=== PATIENT | male | born 1985 | race Caucasian/White ===

== ENCOUNTER 2019-11-02 22:25 | Emergency (ER) | payer OTHER ==
[~2019-11-02] VITALS: Ht 185.5 cm; Wt 127.8 kg
--- NOTE | 2019-11-02 22:44 | ED Abdominal Pain ---
General Chief Complaint: Abdominal/GI Problems Stated Complaint: BACK/SIDE PAIN,BLOOD IN VOMIT History of Present Illness Date Seen by Provider: Nov 02, 2019 Time Seen by Provider: 22:30 Initial Comments Patient is here with left flank pain started when he returned from [place] a few hours ago he probably had prominent pain at that time which eventually went down into his groin mother does have a history of kidney stones he has not had any splenosis gallbladder and appendix no medications no medication allergies no fever no chills did throw up to drink a little blood streaking has always had diarrhea but no blood in his diarrhea Timing/Duration: 1-3 Hours Severity/Quality: Moderate Location: Flank (left) Radiation: Groin Activities at Onset: None Modifying Factors: Improves With Coughing, Improves With Movement Associated Symptoms: Back Pain; No Diaphoresis, No Fatigue; Nausea/Vomiting; No Weakness Allergies and Home Medications Allergies Coded Allergies: No Known Drug Allergies (Unverified , 05/11/10) Patient Home Medication List Home Medication List Reviewed: Yes Review of Systems Review of Systems Constitutional: No chills, No fever EENTM: No Ear Pain, No Throat Pain Respiratory: Denies Cough, Denies Shortness of Air Cardiovascular: Denies Chest Pain, Denies Palpitations Gastrointestinal: Abdominal Pain, Diarrhea, Nausea, Vomiting Genitourinary: Denies Burning, Denies Hematuria Musculoskeletal: No joint pain, No muscle pain Skin: No lesions, No rash Psychiatric/Neurological: Denies Headache, Denies Numbness, Denies Weakness Past Tpodqfh-Ktmqbh-Efkjhm Hx Past Med/Social Hx: Reviewed Nursing Past Med/Soc Hx Patient Social History Alcohol Use: Rarely Uses Recreational Drug Use: No Smoking Status: Never a Smoker 2nd Hand Smoke Exposure: No Recent Foreign Travel: No Recent Hopitalizations: No Physical Abuse: No Sexual Abuse: No Mistreated: No Fear: No Seasonal Allergies Seasonal Allergies: No Past Medical History Surgeries: No Respiratory: No Cardiac: No Neurological: No Genitourinary: No Gastrointestinal: No Musculoskeletal: Yes Chronic Back Pain Endocrine: No HEENT: No Cancer: No Psychosocial: No Integumentary: No Blood Disorders: No Physical Exam Vital Signs Vital Signs - First Documented 11/02/19 22:34 Temp 36.2 Pulse 94 Resp 18 B/P (MAP) 134/92 (106) Pulse Ox 98 O2 Delivery Room Air Capillary Refill : Height/Weight/BMI Height: '" Weight: lbs. oz. kg; BMI Method:Stated General Appearance: WD/WN, no apparent distress HEENT: PERRL/EOMI, TMs normal, pharynx normal Neck: full range of motion, normal inspection Respiratory: lungs clear, no respiratory distress Cardiovascular: regular rate, rhythm, no murmur Gastrointestinal: normal bowel sounds, non tender, soft Extremities: non-tender, normal inspection Back: CVA tenderness (L) Neurologic/Psychiatric: no motor/sensory deficits, oriented x 3 Skin: normal color, warm/dry Progress/Results/Core Measures Results/Orders Lab Results Laboratory Tests Test 11/02/19 22:40 11/02/19 22:45 Range/Units Urine Color YELLOW Urine Clarity CLEAR Urine pH 5.5 5-9 Urine Specific [place] >1.030 1.016-1.022 Urine Protein TRACE H NEGATIVE Urine Glucose (UA) NEGATIVE NEGATIVE Urine Ketones NEGATIVE NEGATIVE Urine Nitrite NEGATIVE NEGATIVE Urine Bilirubin NEGATIVE NEGATIVE Urine Urobilinogen 0.2 < = 1.0 MG/DL Urine Leukocyte Esterase NEGATIVE NEGATIVE Urine RBC (Auto) 3+ H NEGATIVE Urine RBC >100 H /HPF Urine WBC NONE /HPF Urine Crystals NONE /LPF Urine Bacteria FEW H /HPF Urine Casts NONE /LPF Urine Mucus MODERATE H /LPF Urine Culture Indicated NO White Blood Count 10.9 4.3-11.0 10^3/uL Red Blood Count 5.29 4.35-5.85 10^6/uL Hemoglobin 15.8 13.3-17.7 G/DL Hematocrit 46 40-54 % Mean Corpuscular Volume 86 80-99 FL Mean Corpuscular Hemoglobin 30 25-34 PG Mean Corpuscular Hemoglobin Concent 35 32-36 G/DL Red Cell Distribution Width 13.2 10.0-14.5 % Platelet Count 321 130-400 10^3/uL Mean Platelet Volume 9.1 7.4-10.4 FL Neutrophils (%) (Auto) 60 42-75 % Lymphocytes (%) (Auto) 25 12-44 % Monocytes (%) (Auto) 11 0-12 % Eosinophils (%) (Auto) 3 0-10 % Basophils (%) (Auto) 0 0-10 % Neutrophils # (Auto) 6.6 1.8-7.8 X 10^3 Lymphocytes # (Auto) 2.7 1.0-4.0 X 10^3 Monocytes # (Auto) 1.2 H 0.0-1.0 X 10^3 Eosinophils # (Auto) 0.4 H 0.0-0.3 10^3/uL Basophils # (Auto) 0.0 0.0-0.1 10^3/uL Neutrophils % (Manual) 63 % Lymphocytes % (Manual) 23 % Monocytes % (Manual) 6 % Eosinophils % (Manual) 7 % Band Neutrophils 1 % Microcytosis MODERATE Sodium Level 139 135-145 MMOL/L Potassium Level 3.9 3.6-5.0 MMOL/L Chloride Level 101 98-107 MMOL/L Carbon Dioxide Level 24 21-32 MMOL/L Anion Gap 14 5-14 MMOL/L Blood Urea Nitrogen 13 7-18 MG/DL Creatinine 0.76 0.60-1.30 MG/DL Estimat Glomerular Filtration Rate > 60 BUN/Creatinine Ratio 17 Glucose Level 149 H 70-105 MG/DL Calcium Level 9.3 8.5-10.1 MG/DL Corrected Calcium 9.1 8.5-10.1 MG/DL Total Bilirubin 0.4 0.1-1.0 MG/DL Aspartate Amino Transf (AST/SGOT) 92 H 5-34 U/L Alanine Aminotransferase (ALT/SGPT) 130 H 0-55 U/L Alkaline Phosphatase 96 40-136 U/L Total Protein 8.2 6.4-8.2 GM/DL Albumin 4.3 3.2-4.5 GM/DL Lipase 49 8-78 U/L My Orders Orders - JOEY GUADALUPE JR, MD Cbc And Manual Diff (11/02/19 22:40) Ua Culture If Indicated (11/02/19 22:40) Comprehensive Metabolic Panel (11/02/19 22:40) Lipase (11/02/19 22:40) Ns Iv 1000 Ml (Sodium Chloride 0.9%) (11/02/19 22:45) Ct Abdomen/Pelvis Wo (11/02/19 22:40) Ns Iv 1000 Ml (Sodium Chloride 0.9%) (11/03/19 00:15) Ketorolac Injection (Toradol Injection) (11/03/19 00:15) Medications Given in ED Current Medications Medications Dose Ordered Sig/Frankie Route Start Time Stop Time Status Last Admin Dose Admin Ketorolac Tromethamine 30 mg ONCE ONCE IVP 11/03/19 00:15 11/03/19 00:16 DC 11/03/19 00:17 30 MG Vital Signs/I&O 11/02/19 22:34 Temp 36.2 Pulse 94 Resp 18 B/P (MAP) 134/92 (106) Pulse Ox 98 O2 Delivery Room Air 11/03/19 00:00 Intake Total 1000 ml Balance 1000 ml Progress Progress Note : Time: 01:08 Progress Note Patient's pain resolved at this time we'll send home follow up with his doctor next week to make sure stones cleared will straining capture anything that this past and taken to his PCP. Departure Impression Primary Impression: Kidney stone Disposition: 01 HOME, SELF-CARE Condition: Stable Departure-Patient Inst. Referrals: NO,LOCAL PHYSICIAN (PCP/Family) Primary Care Physician Patient Instructions: Kidney Stones (DC) JOEY GUADALUPE JR, MD Nov 02, 2019 22:44
[2019-11-02] MEDS ORDERED: NS IV 1000 ML 1,000 ML IV SCH (22:45)
[2019-11-02 22:54] LABS: HEMATOCRIT 46 % (40-54); HEMOGLOBIN 15.8 G/DL (13.3-17.7); MEAN CORPUSCULAR HEMOGLOBIN 30 PG (25-34); MEAN CORPUSCULAR VOLUME 86 FL (80-99); WHITE BLOOD COUNT 10.9 10^3/uL (4.3-11.0)
[2019-11-02 22:55] LABS: BASOPHILS % (AUTO) 0 % (0-10); EOSINOPHILS # (AUTO) 0.4 10^3/uL (0.0-0.3); EOSINOPHILS % (AUTO) 3 % (0-10); LYMPHOCYTES # (AUTO) 2.7 X 10^3 (1.0-4.0); LYMPHOCYTES % (AUTO) 25 % (12-44); MEAN CORPUSCULAR HGB CONC 35 G/DL (32-36); MEAN PLATELET VOLUME 9.1 FL (7.4-10.4); MONOCYTES # (AUTO) 1.2 X 10^3 (0.0-1.0); MONOCYTES % (AUTO) 11 % (0-12); NEUTROPHILS # (AUTO) 6.6 X 10^3 (1.8-7.8); NEUTROPHILS % (AUTO) 60 % (42-75); PLATELET COUNT 321 10^3/uL (130-400); RED CELL DISTRIBUTION WIDTH 13.2 % (10.0-14.5)
[2019-11-02 23:01] LABS: CLARITY,URINE CLEAR; COLOR,URINE YELLOW; GLUCOSE, URINE (UA) NEGATIVE (NEGATIVE); KETONES,URINE NEGATIVE (NEGATIVE); NITRITE,URINE NEGATIVE (NEGATIVE); PH,URINE 5.5 (5-9); PROTEIN,URINE TRACE (NEGATIVE)
[2019-11-02 23:02] LABS: BACTERIA,URINE FEW /HPF; BILIRUBIN,URINE NEGATIVE (NEGATIVE); LEUKOCYTE ESTERASE ,URINE NEGATIVE (NEGATIVE); RBC,URINE >100 /HPF
[2019-11-02 23:12] LABS: ALANINE AMINOTRANSFERASE 130 U/L (0-55); ALBUMIN 4.3 GM/DL (3.2-4.5); ALKALINE PHOSPHATASE 96 U/L (40-136); BILIRUBIN,TOTAL 0.4 MG/DL (0.1-1.0); BUN/CREATININE RATIO 17; CALCIUM 9.3 MG/DL (8.5-10.1); CARBON DIOXIDE 24 MMOL/L (21-32); CHLORIDE 101 MMOL/L (98-107); CREATININE SERUM 0.76 MG/DL (0.60-1.30); GFR ESTIMATED > 60; GLUCOSE 149 MG/DL (70-105); LIPASE 49 U/L (8-78); POTASSIUM 3.9 MMOL/L (3.6-5.0); SODIUM 139 MMOL/L (135-145); TOTAL PROTEIN 8.2 GM/DL (6.4-8.2)
[2019-11-02 23:21] LABS: BAND NEUTROPHILS 1 %; EOSINOPHILS % (MANUAL) 7 %; LYMPHOCYTES % (MANUAL) 23 %; MICROCYTOSIS MODERATE; MONOCYTES % (MANUAL) 6 %; NEUTROPHILS % (MANUAL) 63 %
[2019-11-03] MEDS ORDERED: NS IV 1000 ML 1,000 ML IV SCH (00:15)
[2019-11-03] MEDS ORDERED: KETOROLAC 30 MG/ML VIAL IVP ONE (00:15)
[2019-11-03 01:13] VITALS: BP 118/71
--- NOTE | 2019-11-03 07:24 | Diagnostic Imaging Report ---
PROCEDURE: CT abdomen and pelvis without contrast. TECHNIQUE: Multiple contiguous axial images were obtained through the abdomen and pelvis without the use of intravenous contrast. Auto Exposure Controls were utilized during the CT exam to meet ALARA standards for radiation dose reduction. Indication: Left flank pain with nausea and vomiting. Comparison: None. Discussion: The lung bases are unremarkable. Normal heart size. No pleural or pericardial fluid. Fatty infiltration of the liver is noted. The liver is mildly enlarged measuring 20 cm. The gallbladder is mostly contracted. No stone. The pancreas, spleen, stomach, and adrenal glands are unremarkable. A 2 mm nonobstructing left renal calculus. There is a 4 mm stone within the proximal left ureter with mild left hydronephrosis. The large and small bowel loops appear within normal limits. No evidence for appendicitis. The urinary bladder is decompressed. Prostate is normal in size. No ascites or pathologically enlarged lymph nodes identified. The aorta is normal in caliber. No acute osseous abnormality identified. Impression: 1. A 4 mm stone within the proximal left ureter with mild left hydronephrosis. Additional 2 mm nonobstructing left renal calculus. 2. Fatty hepatomegaly. 3. Agree with preliminary report. Dictated by: Dictated on workstation # [id number]
== END 2019-11-03 01:13 | disposition home or self-care (01) ==
LOC: EDUNIT# 22:25 → ER FS 22:27
DX: N13.2 Hydronephrosis with renal and ureteral calculous obstruction (principal)
CPT/HCPCS: 36415; 74176; 80053; 81000; 83690; 85007; 85027; 96361; 96374

== ENCOUNTER 2019-11-10 02:49 | Emergency (ER) | payer OTHER ==
[~2019-11-10] VITALS: Ht 187 cm; Wt 127.0 kg
--- NOTE | 2019-11-10 03:12 | ED Back Pain ---
General Chief Complaint: Back Problems Stated Complaint: KIDNEY STONES Nursing Triage Note: PT COMPLAINING OF LEFT FLANK PAIN. PT DIAGNOSED WITH A KIDNEY STONE A WEEK AGO AND HASN'T BEEN ABLE TO PASS IT YET Nursing Sepsis Screen: No Definite Risk Source of Information: Patient, RN Notes Reviewed History of Present Illness Date Seen by Provider: Nov 10, 2019 Time Seen by Provider: 03:11 Initial Comments Patient has a previously diagnosed kidney stone on the left 4 mm on CAT scan has continued pain with vomiting and feels like he needs to urinate same symptoms as he had previously saidfever otherwise not been unwell never saw the urologist and is unaware of passing the stone spontaneously Location: Paraspinous Muscles Timing/Duration: 12-24 Hours Severity: Moderate Pain/Injury Location: Back Radiation: Other (genitals) Associated Symptoms: other (vomiting) Allergies and Home Medications Allergies Coded Allergies: No Known Drug Allergies (Unverified , 05/11/10) Home Medications Hydrocodone/Acetaminophen 1 Each Tablet, 1 EACH PO Q6H PRN for PAIN-MODERATE Prescribed by: JULES GUTIERREZ on 11/10/19411 Ibuprofen 800 Mg Tablet, 800 MG PO Q8H PRN for PAIN Prescribed by: JULES GUTIERREZ on 11/10/19411 Patient Home Medication List Home Medication List Reviewed: Yes Review of Systems Constitutional: no symptoms reported EENTM: no symptoms reported Respiratory: no symptoms reported Cardiovascular: no symptoms reported Gastrointestinal: LLQ, vomiting Genitourinary: see HPI Musculoskeletal: see HPI, back pain Skin: no symptoms reported Psychiatric/Neurological: No Symptoms Reported Past Xxbiwly-Ssaafz-Oaeaxu Hx Patient Social History Alcohol Use: Denies Use Recreational Drug Use: No 2nd Hand Smoke Exposure: No Recent Foreign Travel: No Contact w/Someone Who Travel: No Recent Infectious Disease Expo: No Recent Hopitalizations: No Physical Abuse: No Sexual Abuse: No Seasonal Allergies Seasonal Allergies: No Past Medical History Surgeries: No Respiratory: No Cardiac: No Neurological: No Genitourinary: No Gastrointestinal: No Musculoskeletal: Yes Chronic Back Pain Endocrine: No HEENT: No Cancer: No Psychosocial: No Integumentary: No Blood Disorders: No Physical Exam Vital Signs Vital Signs - First Documented 11/10/19 02:55 Temp 36.7 Pulse 90 Resp 16 B/P (MAP) 138/85 (102) Pulse Ox 95 O2 Delivery Room Air Capillary Refill : Less Than 3 Seconds Height, Weight, BMI Height: '" Weight: lbs. oz. kg; 36.00 BMI Method:Stated General Appearance: WD/WN, Mild Distress HEENT: PERRL/EOMI, Normal ENT Inspection Neck: Full Range of Motion, Non Tender Cardiovascular: Regular Rate, Rhythm, No Edema Respiratory: Chest Non Tender, Lungs Clear, Normal Breath Sounds, No Accessory Muscle Use Gastrointestinal: Normal Bowel Sounds, No Organomegaly, No Pulsatile Mass, Non Tender Back: Normal Inspection, No CVA Tenderness, No Vertebral Tenderness Extremity: Normal Capillary Refill, Normal Inspection, Normal Range of Motion, Non Tender Neurologic/Psychiatric: Alert, Oriented x3, No Motor/Sensory Deficits Skin: Normal Color, Warm/Dry, Cool Progress/Results/Core Measures Results/Orders Lab Results Laboratory Tests Test 11/10/19 03:15 11/10/19 03:25 Range/Units White Blood Count 13.1 H 4.3-11.0 10^3/uL Red Blood Count 5.26 4.35-5.85 10^6/uL Hemoglobin 15.4 13.3-17.7 G/DL Hematocrit 46 40-54 % Mean Corpuscular Volume 87 80-99 FL Mean Corpuscular Hemoglobin 29 25-34 PG Mean Corpuscular Hemoglobin Concent 34 32-36 G/DL Red Cell Distribution Width 13.2 10.0-14.5 % Platelet Count 313 130-400 10^3/uL Mean Platelet Volume 8.9 7.4-10.4 FL Neutrophils (%) (Auto) 57 42-75 % Lymphocytes (%) (Auto) 26 12-44 % Monocytes (%) (Auto) 12 0-12 % Eosinophils (%) (Auto) 4 0-10 % Basophils (%) (Auto) 0 0-10 % Neutrophils # (Auto) 7.5 1.8-7.8 X 10^3 Lymphocytes # (Auto) 3.4 1.0-4.0 X 10^3 Monocytes # (Auto) 1.6 H 0.0-1.0 X 10^3 Eosinophils # (Auto) 0.5 H 0.0-0.3 10^3/uL Basophils # (Auto) 0.0 0.0-0.1 10^3/uL Neutrophils % (Manual) 62 % Lymphocytes % (Manual) 14 % Monocytes % (Manual) 5 % Eosinophils % (Manual) 2 % Band Neutrophils 3 % Reactive Lymphocytes 14 % Microcytosis MODERATE Sodium Level 139 135-145 MMOL/L Potassium Level 3.7 3.6-5.0 MMOL/L Chloride Level 101 98-107 MMOL/L Carbon Dioxide Level 24 21-32 MMOL/L Anion Gap 14 5-14 MMOL/L Blood Urea Nitrogen 17 7-18 MG/DL Creatinine 1.06 0.60-1.30 MG/DL Estimat Glomerular Filtration Rate > 60 BUN/Creatinine Ratio 16 Glucose Level 122 H 70-105 MG/DL Calcium Level 9.4 8.5-10.1 MG/DL Urine Color YELLOW Urine Clarity CLEAR Urine pH 6.0 5-9 Urine Specific [place] 1.020 1.016-1.022 Urine Protein NEGATIVE NEGATIVE Urine Glucose (UA) NEGATIVE NEGATIVE Urine Ketones NEGATIVE NEGATIVE Urine Nitrite NEGATIVE NEGATIVE Urine Bilirubin NEGATIVE NEGATIVE Urine Urobilinogen 0.2 < = 1.0 MG/DL Urine Leukocyte Esterase NEGATIVE NEGATIVE Urine RBC (Auto) 1+ H NEGATIVE Urine RBC 10-25 H /HPF Urine WBC NONE /HPF Urine Squamous Epithelial Cells NONE /HPF Urine Crystals NONE /LPF Urine Bacteria TRACE /HPF Urine Casts PRESENT /LPF Urine Hyaline Casts 10-25 H /LPF Urine Mucus LARGE H /LPF Urine Culture Indicated NO My Orders Orders - JULES GUTIERREZ DO Ed Iv/Invasive Line Start (11/10/19 03:17) Ed Iv/Invasive Line Start (11/10/19 03:18) Ct Abd/Pelvis Wo(Kidney Stone) (11/10/19 03:18) Ua Culture If Indicated (11/10/19 03:18) Ketorolac Injection (Toradol Injection) (11/10/19 03:30) Basic Metabolic Panel (11/10/19 03:18) Cbc And Manual Diff (11/10/19 03:18) Ns Iv 1000 Ml (Sodium Chloride 0.9%) (11/10/19 03:30) Medications Given in ED Current Medications Medications Dose Ordered Sig/Frankie Route Start Time Stop Time Status Last Admin Dose Admin Ketorolac Tromethamine 30 mg ONCE ONCE IVP 11/10/19 03:30 11/10/19 03:31 DC 11/10/19 03:30 30 MG Vital Signs/I&O 11/10/19 11/10/19 02:55 04:21 Temp 36.7 Pulse 90 85 Resp 16 16 B/P (MAP) 138/85 (102) 135/73 Pulse Ox 95 96 O2 Delivery Room Air Room Air Blood Pressure Mean: 102 Progress Progress Note : Progress Note Patient with flank pain consistent with previous ureteral calculus is history of 4 mm stone with high-grade obstruction on previous CT. Now he has increased pain dysuria no fever vomiting similar symptoms. Plan will be reimaging due to several days passing without stone to ensure this is not an one of the anatomic narrowed areas IV fluids and analgesia and probably urology follow-up Departure Impression Primary Impression: Ureteral stone with hydronephrosis Disposition: HOME, SELF-CARE Condition: Improved Departure-Patient Inst. Referrals: SELFWALT MD (PCP/Family) Primary Care Physician BRITTANIE POWELL MD Scripts Ibuprofen (Ibuprofen) 800 Mg Tablet 800 MG PO Q8H PRN for PAIN for 7 Days, #30 TAB 0 Refills Prov: JULES GUTIERREZ DO 11/10/19 Hydrocodone/Acetaminophen (Hydrocodon-Acetaminophn 10-325) 1 Each Tablet 1 EACH PO Q6H PRN for PAIN-MODERATE MDD 5 for 3 Days, #14 TAB 0 Refills Prov: JULES GUTIERREZ DO 11/10/19 JULES GUTIERREZ DO Nov 10, 2019 03:12
[2019-11-10 03:26] LABS: BASOPHILS % (AUTO) 0 % (0-10); EOSINOPHILS # (AUTO) 0.5 10^3/uL (0.0-0.3); EOSINOPHILS % (AUTO) 4 % (0-10); HEMATOCRIT 46 % (40-54); HEMOGLOBIN 15.4 G/DL (13.3-17.7); LYMPHOCYTES # (AUTO) 3.4 X 10^3 (1.0-4.0); LYMPHOCYTES % (AUTO) 26 % (12-44); MEAN CORPUSCULAR HEMOGLOBIN 29 PG (25-34); MEAN CORPUSCULAR HGB CONC 34 G/DL (32-36); MEAN CORPUSCULAR VOLUME 87 FL (80-99); MEAN PLATELET VOLUME 8.9 FL (7.4-10.4); MONOCYTES # (AUTO) 1.6 X 10^3 (0.0-1.0); MONOCYTES % (AUTO) 12 % (0-12); NEUTROPHILS # (AUTO) 7.5 X 10^3 (1.8-7.8); NEUTROPHILS % (AUTO) 57 % (42-75); PLATELET COUNT 313 10^3/uL (130-400); RED CELL DISTRIBUTION WIDTH 13.2 % (10.0-14.5); WHITE BLOOD COUNT 13.1 10^3/uL (4.3-11.0)
[2019-11-10] MEDS ORDERED: KETOROLAC 30 MG/ML VIAL IVP ONE (03:30)
[2019-11-10] MEDS ORDERED: NS IV 1000 ML 1,000 ML IV SCH (03:30)
[2019-11-10 03:38] LABS: BACTERIA,URINE TRACE /HPF; BILIRUBIN,URINE NEGATIVE (NEGATIVE); CLARITY,URINE CLEAR; COLOR,URINE YELLOW; GLUCOSE, URINE (UA) NEGATIVE (NEGATIVE); KETONES,URINE NEGATIVE (NEGATIVE); LEUKOCYTE ESTERASE ,URINE NEGATIVE (NEGATIVE); NITRITE,URINE NEGATIVE (NEGATIVE); PROTEIN,URINE NEGATIVE (NEGATIVE)
[2019-11-10 03:44] LABS: BAND NEUTROPHILS 3 %; EOSINOPHILS % (MANUAL) 2 %; LYMPHOCYTES % (MANUAL) 14 %; MICROCYTOSIS MODERATE; MONOCYTES % (MANUAL) 5 %; NEUTROPHILS % (MANUAL) 62 %; REACTIVE LYMPHOCYTES 14 %
[2019-11-10 03:51] LABS: BUN/CREATININE RATIO 16; CALCIUM 9.4 MG/DL (8.5-10.1); CARBON DIOXIDE 24 MMOL/L (21-32); CHLORIDE 101 MMOL/L (98-107); CREATININE SERUM 1.06 MG/DL (0.60-1.30); GFR ESTIMATED > 60; GLUCOSE 122 MG/DL (70-105); POTASSIUM 3.7 MMOL/L (3.6-5.0); SODIUM 139 MMOL/L (135-145)
[2019-11-10] MEDS ORDERED: IBUP-1780 PO (04:12)
[2019-11-10] MEDS ORDERED: HYDR-3820 PO (04:12)
[2019-11-10 04:21] VITALS: BP 135/73
--- NOTE | 2019-11-10 06:31 | Diagnostic Imaging Report ---
CT ABD/PELVIS WO(KIDNEY STONE) TECHNIQUE: Unenhanced CT imaging of the abdomen and pelvis was performed. 2-D reformats are created and submitted for interpretation. Automatic exposure controls were utilized to optimize patient dose. INDICATION: Left flank pain COMPARISON: 11/02/2019 FINDINGS: Evaluation of the abdominal viscera is mildly limited without contrast. Lower chest: The lung bases are clear. No pericardial or pleural effusion. Peritoneum: No free intraperitoneal air or fluid. Liver and biliary system: Diffuse hypoattenuation of the liver is indicative of hepatic steatosis. No focal hepatic lesion. The gallbladder is normal. No biliary duct dilation. Spleen and Pancreas: Spleen is normal. Unenhanced pancreas is grossly normal. Adrenals: Normal. tract: The 4 mm left renal stone has migrated to the level of the UVJ and still results in mild left hydronephrosis and hydroureter. Additional 2 mm nonobstructing stone in the upper pole left kidney stable. No right renal or ureteral calculi. GI tract: Stomach is partially filled with fluid and food debris and there is no wall thickening. No bowel obstruction. No pericolonic inflammatory changes. Normal appendix. Vasculature and Lymph nodes: Normal caliber aorta. No abdominal or pelvic lymphadenopathy. Musculoskeletal: No concerning osseous lesion. L5-S1 central disc protrusion is unchanged results in mild spinal stenosis. IMPRESSION: 1. The 4 mm left renal stone has now propagated to the level of the UVJ and still results in mild left hydronephrosis. 2. Findings are in agreement with the preliminary report. Dictated by: Dictated on workstation # [id number]
== END 2019-11-10 04:21 | disposition home or self-care (01) ==
LOC: EDUNIT# 02:49 → ER FS 02:51
DX: N13.2 Hydronephrosis with renal and ureteral calculous obstruction (principal); G89.29 Other chronic pain
CPT/HCPCS: 36415; 74176; 80048; 81000; 85007; 85027; 96361; 96374

== ENCOUNTER 2019-11-16 15:23 | Emergency (ER) | payer OTHER ==
[~2019-11-16] VITALS: Ht 185.4 cm; Wt 130.3 kg
[~2019-11-16 15:23] MED LIST: HYDR-3820 PO; IBUP-1780 PO
[2019-11-16] MEDS ORDERED: ONDANSETRON 4 MG (ZOFRAN) ORAL DISSOLVE TAB PO STA (16:18)
[2019-11-16] MEDS ORDERED: morphine INJ 10 MG/ML 1ML (SYR OR VIAL) IM STA (16:18)
[2019-11-16 16:55] LABS: CLARITY,URINE CLEAR; COLOR,URINE YELLOW; GLUCOSE, URINE (UA) NEGATIVE (NEGATIVE); PH,URINE 5.5 (5-9); PROTEIN,URINE NEGATIVE (NEGATIVE)
[2019-11-16 16:56] LABS: BACTERIA,URINE NEGATIVE /HPF; BILIRUBIN,URINE NEGATIVE (NEGATIVE); KETONES,URINE NEGATIVE (NEGATIVE); LEUKOCYTE ESTERASE ,URINE NEGATIVE (NEGATIVE); NITRITE,URINE NEGATIVE (NEGATIVE); SQUAMOUS EPITHELIAL CELL,UR RARE /HPF; WBC,URINE RARE /HPF
--- NOTE | 2019-11-16 17:02 | ED GU-Female ---
General Chief Complaint: - Urinary Stated Complaint: UNABLE TO PASS KIDNEY STONE Nursing Triage Note: Patient presents to the ED with c/o burning and urgency with urination. States that he has been seen in the ED several times and is unable to pass the kidens stone. Nursing Sepsis Screen: No Definite Risk History of Present Illness Date Seen by Provider: Nov 16, 2019 Time Seen by Provider: 15:35 Initial Comments The patient is a 34-year-old otherwise healthy male who presents for reevaluation of continued left flank discomfort with radiation towards the groin. He has a diagnosis of left-sided ureteral stone which has been present for almost 3 weeks and has been imaged twice. At last imaging on the it had moved to the ureterovesicular junction on the left and patient states that pain has been completely unchanged since that time. He has been taking hydrocodone at home without relief of symptoms. He states he does not know what to do. He reports hematuria. He denies associated fevers, hematemesis, hematochezia, melena, cough, shortness of breath or chest pain, focal abdominal pain of any kind, pain to testicles or scrotum or penis or Pyridium, changes in bowel habits. Patient is supposed to see urology in the office next week but does not think he can wait that long. Allergies and Home Medications Allergies Coded Allergies: No Known Drug Allergies (Unverified , 05/11/10) Home Medications Hydrocodone/Acetaminophen 1 Each Tablet, 1 EACH PO Q6H PRN for PAIN-MODERATE Prescribed by: JULES GUTIERREZ on 11/10/192 Ibuprofen 800 Mg Tablet, 800 MG PO Q8H PRN for PAIN Prescribed by: JULES GUTIERREZ on 11/10/19411 Patient Home Medication List Home Medication List Reviewed: Yes Review of Systems Review of Systems Constitutional: see HPI All Other Systemes Reviewed Negative Unless Noted: Yes (Negative excepted noted.) Past Gvmphcq-Dkeyze-Telzgx Hx Past Med/Social Hx: Reviewed Nursing Past Med/Soc Hx Patient Social History Alcohol Use: Denies Use Recreational Drug Use: No 2nd Hand Smoke Exposure: No Recent Foreign Travel: No Contact w/Someone Who Travel: No Recent Infectious Disease Expo: No Recent Hopitalizations: No Physical Abuse: No Sexual Abuse: No Mistreated: No Fear: No Seasonal Allergies Seasonal Allergies: No Past Medical History Surgeries: No Respiratory: No Cardiac: No Neurological: No Genitourinary: No Gastrointestinal: No Musculoskeletal: Yes Chronic Back Pain Endocrine: No HEENT: No Cancer: No Psychosocial: No Integumentary: No Blood Disorders: No Family Medical History Reviewed Nursing Family Hx Physical Exam Vital Signs Vital Signs - First Documented 11/16/19 16:18 Temp 36.7 Pulse 99 Resp 20 B/P (MAP) 144/91 (108) Pulse Ox 94 O2 Delivery Room Air Capillary Refill : Less Than 3 Seconds Height, Weight, BMI Height: '" Weight: lbs. oz. kg; 37.00 BMI Method:Stated General Appearance: no apparent distress Is a younger male appearing nontoxic and in no acute distress. Head is normocephalic and atraumatic. Neck is supple and nontender. Oropharynx is moist. Lungs are clear to auscultation at all stations. There is a normal S1 and S2 without rubs or gallops and capillary refill is appropriate, less than 2 seconds globally. Abdomen is soft, nontender nondistended. Skin is warm and dry without cyanosis, clubbing or edema. Psychiatrically, the patient didn't straights appropriate mood and affect and is alert. Progress/Results/Core Measures Suspected Sepsis Recent Fever Within 48 Hours: No Infection Criteria Present: None New/Unexplained Altered Menta: No Sepsis Screen: No Definite Risk SIRS Temperature: Pulse: 99 Respiratory Rate: 20 Blood Pressure 144 /91 Mean: 108 Results/Orders Lab Results Laboratory Tests Test 11/16/19 15:50 Range/Units Urine Color YELLOW Urine Clarity CLEAR Urine pH 5.5 5-9 Urine Specific [place] 1.025 H 1.016-1.022 Urine Protein NEGATIVE NEGATIVE Urine Glucose (UA) NEGATIVE NEGATIVE Urine Ketones NEGATIVE NEGATIVE Urine Nitrite NEGATIVE NEGATIVE Urine Bilirubin NEGATIVE NEGATIVE Urine Urobilinogen 0.2 < = 1.0 MG/DL Urine Leukocyte Esterase NEGATIVE NEGATIVE Urine RBC (Auto) 1+ H NEGATIVE Urine RBC 2-5 H /HPF Urine WBC RARE /HPF Urine Squamous Epithelial Cells RARE /HPF Urine Crystals NONE /LPF Urine Bacteria NEGATIVE /HPF Urine Casts NONE /LPF Urine Mucus NONE /LPF Urine Culture Indicated NO My Orders Orders - HAILEY GRIMALDO MD Ua Culture If Indicated (11/16/19 16:18) Morphine Injection (Morphine Injection (11/16/19 16:18) Ondansetron Oral Dissolve Tab (Zofran (11/16/19 16:18) Vital Signs/I&O 11/16/19 16:18 Temp 36.7 Pulse 99 Resp 20 B/P (MAP) 144/91 (108) Pulse Ox 94 O2 Delivery Room Air Capillary Refill : Less Than 3 Seconds Blood Pressure Mean: 108 Progress Note : Time: 17:00 Progress Note Patient presents for his third reevaluation of left flank pain radiating to the groin with associated hematuria in the setting of known left sided UVJ stone, 4 mm in size. Last imaged on every . Has not been able to follow-up with urology yet. Patient is in poorly controlled distress at home. We will not repeat imaging today. We'll check urinalysis and will treat pain and nausea and will plan for admission to facilitate urology attention to address the issue appropriately. Unfortunately there is no urology coverage this weekend at [facility] so we will need to transfer. Patient is therefore graciously accepted in transfer to [facility] by Dr. Anderson. Departure Impression Primary Impression: Renal colic on left side Disposition: XFER SHT-TRM HOSP Condition: Stable Transfer Transfer Reason: Exceeds level of care Time Spoke to Accepting Phy: 17:01 Transfer Progress Notes No inpatient urology coverage at [facility]. Transferring to [facility] in consequence, as noted above. Patient wants to go by private vehicle and declines EMS transfer. He understands the risks inherent in doing so and agrees to accept them. Transfer Facility: [facility] Method of Transfer: Private Vehicle Departure-Patient Inst. Referrals: SELF,WALT WALLACE (PCP/Family) Primary Care Physician HAILEY GRIMALDO MD Nov 16, 2019 17:02
--- NOTE | 2019-11-16 18:03 | NUR ---
[facility] transfer line was notified that pt will be going by private vehicle.
[2019-11-16 18:18] VITALS: BP 148/87
== END 2019-11-16 18:09 | disposition short-term general hospital (02) ==
LOC: EDUNIT# 15:23 → ER FS 15:24
DX: N23 Unspecified renal colic (principal)
CPT/HCPCS: 81000; 96372; 99284

== ENCOUNTER 2021-08-15 15:03 | Emergency (ER) | payer OTHER ==
[~2021-08-15] VITALS: Ht 185 cm; Wt 129.0 kg
[~2021-08-15 15:03] MED LIST changes: +ACHYD1T PO; -HYDR-3820 PO
[2021-08-15 15:33] VITALS: BP 127/71
[2021-08-15] MEDS ORDERED: ONDANSETRON 4 MG (ZOFRAN) ORAL DISSOLVE TAB PO STA (15:55)
[2021-08-15] MEDS ORDERED: morphine INJ 10 MG/ML 1ML (SYR OR VIAL) IM STA (15:55)
--- NOTE | 2021-08-15 15:55 | ED Back Pain ---
General Chief Complaint: Back Problems Stated Complaint: BACK PAIN Nursing Triage Note: Patient has presented to ER with cc of lower left sided back pain with radiation down the back of his left leg. 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 He is unaware of any specific injury that caused this pain. Source of Information: Patient Exam Limitations: No Limitations History of Present Illness Date Seen by Provider: Aug 15, 2021 Time Seen by Provider: 16:00 Initial Comments Patient is a 36-year-old male with history of chronic recurrent sciatica who presents with acute onset left lower lumbar radicular back pain 10- day goes ago after lifting at work. 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 States pain radi ates above his knee. Not associated with bowel or bladder dysfunction or saddle anesthesia. Pain is moderate to severe worse with rotation lifting and movement. Pain was stopped work today when he had to stop due to pain. He is being treated by his chiropractor and taken [id number] pain medication with limited relief. He has not had an MRI in a number of years. No other acute symptoms or complaints. Location: Paraspinous Muscles Timing/Duration: 1 Week, Getting Worse Severity: Severe Pain/Injury Location: Back Radiation: Upper Legs Method of Injury: Other Modifying Factors: Improves With Other Associated Symptoms: other Allergies and Home Medications Allergies Coded Allergies: No Known Drug Allergies (Unverified , 05/11/10) Patient Home Medication List Home Medication List Reviewed: Yes Hydrocodone Bit/Acetaminophen (HYDROcodone/APAP 10/325 TABLET) 1 Each Tablet, 1 EACH PO Q6H PRN for PAIN-MODERATE Prescribed by: JULES GUTIERREZ on 11/10/192 Ibuprofen (Ibuprofen) 800 Mg Tablet, 800 MG PO Q8H PRN for PAIN Prescribed by: JULES GUTIERREZ on 11/10/19 041 Review of Systems Constitutional: other (Moderate distress secondary to discomfort) EENTM: see HPI Respiratory: see HPI Cardiovascular: see HPI Gastrointestinal: see HPI Genitourinary: see HPI Musculoskeletal: see HPI Skin: see HPI Psychiatric/Neurological: See HPI Past [id number] Hx Patient Social History Tobacco Use?: No Use of E-Cig and/or Vaping dev: No Substance use?: No Alcohol Use?: No Seasonal Allergies Seasonal Allergies: No Past Medical History Surgeries: No Respiratory: No Cardiac: No Neurological: No Genitourinary: No Gastrointestinal: No Musculoskeletal: Yes Chronic Back Pain Endocrine: No HEENT: No Cancer: No Psychosocial: No Integumentary: No Blood Disorders: No Physical Exam Vital Signs Vital Signs - First Documented 08/15/21 15:33 Temp 36.4 Pulse 80 Resp 18 B/P (MAP) 127/71 (89) Pulse Ox 97 O2 Delivery Room Air Capillary Refill : Height, Weight, BMI Height: '" Weight: lbs. oz. kg; 37.00 BMI Method:Stated General Appearance: Moderate Distress (Secondary to pain) HEENT: PERRL/EOMI, Other Neck: Other Cardiovascular: Regular Rate, Rhythm Respiratory: Lungs Clear Back: Decreased Range of Motion, Muscle Spasm, Other (Positive SLR on the left) Neurologic/Psychiatric: Alert, Oriented x3, No Motor/Sensory Deficits Progress/Results/Core Measures Results/Orders My Orders Orders - LORENA VENEGAS DO Morphine Injection (Morphine Injection (08/15/21 15:55) Orphenadrine Inj (Ed Only) (Norflex Inje (08/15/21 16:00) Ondansetron Oral Dissolve Tab (Zofran (08/15/21 15:55) Vital Signs/I&O 08/15/21 15:33 Temp 36.4 Pulse 80 Resp 18 B/P (MAP) 127/71 (89) Pulse Ox 97 O2 Delivery Room Air Blood Pressure Mean: 89 Departure Communication (Admissions) Patient with radicular back pain without neurologic compromise. Pain addressed. Recommendations are supportive care with PCP follow-up for pain management and further evaluation. Return precautions reviewed. Patient verbalizes understanding and agreement discharge instructions prior to departure. Impression Primary Impression: Lumbar radiculopathy Disposition: HOME, SELF-CARE Condition: Stable Departure-Patient Inst. Decision time for Depature: 16:26 Referrals: SELF,WALT WALLACE (PCP/Family) Primary Care Physician Patient Instructions: Radiculopathy (DC) Add. Discharge Instructions: You were evaluated in the emergency department for low back pain. Your symptoms are consistent with sciatica. Please avoid heavy lifting strenuous physical activity and follow-up with your PCP for reevaluation and further management. Take newly prescribed medications as directed. All discharge instructions reviewed with patient and/or family. Voiced understanding. Scripts Hydrocodone/Acetaminophen (Hydrocodone-Acetamin 5-325 mg) 1 Each Tablet 1 TAB PO Q4H PRN for PAIN-MODERATE (5-7), #10 TAB Prov: LORENA VENEGAS DO 08/15/21 Cyclobenzaprine HCl (Cyclobenzaprine HCl) 10 Mg Tablet 10 MG PO TID, #30 TAB Prov: LORENA VENEGAS DO 08/15/21 Methylprednisolone (Methylprednisolone Dose Pack) 4 Mg Tab.ds.pk 4 MG PO UD for 6 Days, #21 PKG PER DOSE PACK INSTRUCTIONS Prov: LORENA VENEGAS DO 08/15/21 LORENA VENEGAS DO Aug 15, 2021 15:55
[2021-08-15] MEDS ORDERED: ORPHENADRINE 60 MG/2 ML (NORFLEX) AMP (ED ONLY) IM ONE (16:00)
[2021-08-15] MEDS ORDERED: ACHD5005 PO (16:29)
[2021-08-15] MEDS ORDERED: CYCL10TA9 PO (16:29)
[2021-08-15] MEDS ORDERED: METH4TAB10 PO (16:29)
== END 2021-08-15 16:42 | disposition home or self-care (01) ==
LOC: EDUNIT# 15:03 → ER FS 15:05
DX: M54.16 Radiculopathy, lumbar region (principal); G89.29 Other chronic pain; M54.9 Dorsalgia, unspecified; Z79.891 Long term (current) use of opiate analgesic
CPT/HCPCS: 99284